=== PATIENT | male | born 1975 | race Caucasian/White ===

== ENCOUNTER → 2017-08-14 | Emergency (ER) | payer SELFPAY ==
[~2017-08-14] VITALS: Ht 180.3 cm; Wt 95.0 kg
[~2017-08-14] MED LIST: ASPIRIN 325 MG TAB PO ONE; HYDR-3012 PO; LORAZEPAM 1 MG TAB PO ONE
[2017-08-14 11:16] VITALS: Ht 180.3 cm; Wt 95.0 kg
--- NOTE | 2017-08-14 12:05 | ERD ---
ER Documentation Chief Complaint Chief Complaint headpain,dizziness and anxiety x this AM HPI 42-year-old male who presents emergency department for dizziness and chest pressure, palpitation since this morning. Stated that he had a lot of alcohol intake in the last 2 days. Also stated that he had this kind of symptoms 2 weeks ago and relieved when she rested. Stated that he has history of anxiety. Denies headache, head trauma, that this is the worst feeling/headache of his life, neck pain, throat pain, difficulty swallowing, shoulder pain, chest pain, difficulty breathing when lying flat, abdominal pain, back pain, nausea, vomiting, constipation, diarrhea, loss of bowel and bladder control, urinary symptoms, trauma, injury, falls, unilateral weakness, recent long travel, recent travel, recent exposure to any illness, recent antibiotic use in the last 3 months, fever, chills, difficulty walking. ROS All systems reviewed and are negative except as per history of present illness. Medications Home Meds No Active Prescriptions or Reported Meds Allergies Allergies: Coded Allergies: No Known Allergy (Unverified , 05/03/14) PMhx/Soc History of Surgery: No Anesthesia Reaction: No Hx Neurological Disorder: No Hx Respiratory Disorders: No Hx Cardiac Disorders: No Hx Psychiatric Problems: No Hx Miscellaneous Medical Probl: No Hx Alcohol Use: No Hx Substance Use: No Hx Tobacco Use: No Physical Exam Vitals Vital Signs Date Time Temp Pulse Resp B/P Pulse Ox O2 Delivery O2 Flow Rate FiO2 08/14/17 11:16 98.8 120 20 132/94 99 Physical Exam Const: In mild distress due to dizziness and palpitation. Head: Atraumatic Eyes: Normal Conjunctiva ENT: Normal External Ears, Nose and Mouth. Neck: Full range of motion..~ No meningismus. Resp: Clear to auscultation bilaterally Cardio: Regular rate and rhythm, no murmurs Abd: Soft, non tender, non distended. Normal bowel sounds Skin: No petechiae or rashes Back: No midline or flank tenderness Ext: No cyanosis, or edema Neur: Awake and alert. No neurological deficits. Romberg test is negative. Psych: Normal Mood and Affect Result Diagram: 08/14/17 1230 08/14/17 1230 Results 24 hrs Laboratory Tests Test 08/14/17 12:30 White Blood Count 10.610^3/ul Red Blood Count 5.5010^6/ul Hemoglobin 17.1g/dl Hematocrit 47.1% Mean Corpuscular Volume 85.6fl Mean Corpuscular Hemoglobin 31.1pg Mean Corpuscular Hemoglobin Concent 36.3g/dl Red Cell Distribution Width 12.2% Platelet Count 63187^3/UL Mean Platelet Volume 10.0fl Neutrophils % 62.7% Lymphocytes % 30.6% Monocytes % 5.2% Eosinophils % 0.8% Basophils % 0.5% Nucleated Red Blood Cells % 0.0/100WBC Neutrophils # 6.710^3/ul Lymphocytes # 3.310^3/ul Monocytes # 0.610^3/ul Eosinophils # 0.110^3/ul Basophils # 0.110^3/ul Nucleated Red Blood Cells # 0.010^3/ul Prothrombin Time 12.8Sec Prothrombin Time Ratio 1.0 INR International Normalized Ratio 0.95 Activated Partial Thromboplast Time 25.8Sec Sodium Level 142mmol/L Potassium Level 3.8mmol/L Chloride Level 104mmol/L Carbon Dioxide Level 19mmol/L Anion Gap 23 Blood Urea Nitrogen 12mg/dl Creatinine 1.10mg/dl Glucose Level 119mg/dl Calcium Level 9.3mg/dl Total Bilirubin 1.8mg/dl Direct Bilirubin 0.00mg/dl Indirect Bilirubin 1.8mg/dl Aspartate Amino Transf (AST/SGOT) 35IU/L Alanine Aminotransferase (ALT/SGPT) 60IU/L Alkaline Phosphatase 89IU/L Troponin I < 0.012ng/ml Total Protein 7.8g/dl Albumin 4.5g/dl Globulin 3.30g/dl Albumin/Globulin Ratio 1.36 Urine Opiates Screen Negative Urine Barbiturates Negative Urine Amphetamines Screen Negative Urine Benzodiazepines Screen Negative Urine Cocaine Screen Negative Urine Cannabinoids Negative Current Medications Medications (Trade) Dose Ordered Sig/Won Route PRN Reason Start Time Stop Time Status Last Admin Dose Admin Aspirin (Aspirin) 325 mg ONCE ONCE PO 08/14/17 12:30 08/14/17 12:31 DC 08/14/17 12:24 Procedures/MDM 42-year-old male presents emergency department for dizziness, palpitation, chest pressure since this morning. EKG: Normal sinus rhythm with a ventricular rate of 99 bpm. No STEMI. Read by supervising physician, Dr. Laith Teehee. Treatment: Aspirin. Antivert. Reevaluation: Denies headache, dizziness, chest pain, back pain, abdominal pain. No neurological deficits. I have low suspicion for stroke, acute myocardial infarction, acute coronary syndrome given that the patient is well-appearing, physical exam was unremarkable, blood works is unremarkable. Final diagnosis: Anxiety. Prescription: Pain. Tylenol. Hydroxyzine. Follow-up with PCP in the next 3-4 days. Come back here in the emergency department for any new symptoms or any worsening of symptoms. All questions and concerns are answered. Patient verbalized understanding and agreed with the plan of care. Hemodynamically stable on discharge. Departure Diagnosis: Primary Impression: Anxiety Condition: Stable Additional Instructions: Follow-up with PCP in the next 3-4 days. Come back here in the emergency department for any new symptoms or any worsening of symptoms. All questions and concerns are answered. Patient verbalized understanding and agreed with the plan of care. LIBORIO SIU Aug 14, 2017 12:05
[2017-08-14 12:52] LABS: BASOPHIL # 0.1 10^3/ul (0.0-0.1); BASOPHILS % 0.5 % (0.0-2.0); EOSINOPHILS # 0.1 10^3/ul (0.0-0.5); EOSINOPHILS % 0.8 % (0.0-7.0); HEMATOCRIT 47.1 % (42.0-52.0); HEMOGLOBIN 17.1 g/dl (14.0-18.0); LYMPHOCYTES # 3.3 10^3/ul (0.8-2.9); LYMPHOCYTES % 30.6 % (15.0-51.0); MEAN CORPUSCULAR HEMOGLOBIN 31.1 pg (29.0-33.0); MEAN CORPUSCULAR HGB CONC 36.3 g/dl (32.0-37.0); MEAN CORPUSCULAR VOLUME 85.6 fl (82.0-101.0); MONOCYTE # 0.6 10^3/ul (0.3-0.9); MONOCYTES % 5.2 % (0.0-11.0); NEUTROPHIL # 6.7 10^3/ul (1.6-7.5); NEUTROPHILS % 62.7 % (39.0-77.0); PLATELET COUNT 343 10^3/UL (140-415); RED CELL DISTRIBUTION WIDTH 12.2 % (11.5-14.5); WHITE BLOOD COUNT 10.6 10^3/ul (4.8-10.8)
--- NOTE | 2017-08-14 13:11 | RADRPT ---
PROCEDURE: XR Chest. CLINICAL INDICATION: Chest pressure TECHNIQUE: PA and lateral views of the chest were obtained. COMPARISON: CR CHEST 04/28/2014; CR CHEST 03/29/2014 FINDINGS: No focal airspace opacification, pleural effusion or pneumothorax is seen. The cardiomediastinal si lhouette is within normal limits for size. The osseous structures are unremarkable. IMPRESSION: Unremarkable chest x-ray series. RPTAT: HH .Ashley Pérez MD, MD Date Time Electronically viewed and signed by .Ashley Pérez MD, on 08/14/2017 13:10 .G/
[2017-08-14 13:13] LABS: INR 0.95; PARTIAL THROMBOPLASTIN TIME 25.8 Sec (25.0-35.0); PROTIME 12.8 Sec (11.9-14.9)
[2017-08-14 13:15] LABS: ALANINE AMINOTRANSFERASE 60 IU/L (13-69); ALBUMIN 4.5 g/dl (3.3-4.9); ALBUMIN/GLOBULIN RATIO 1.36; ALKALINE PHOSPHATASE 89 IU/L (42-121); ANION GAP 23 (8-16); ASPARTATE AMINO TRANSFERASE 35 IU/L (15-46); BILIRUBIN,INDIRECT 1.8 mg/dl (0-1.1); BILIRUBIN,TOTAL 1.8 mg/dl (0.2-1.3); BLOOD UREA NITROGEN 12 mg/dl (7-20); CALCIUM 9.3 mg/dl (8.4-10.2); CARBON DIOXIDE 19 mmol/L (21-31); CHLORIDE 104 mmol/L (97-110); GLUCOSE 119 mg/dl (70-220); POTASSIUM 3.8 mmol/L (3.5-5.1); SODIUM 142 mmol/L (135-144); TOTAL PROTEIN 7.8 g/dl (6.1-8.1)
[2017-08-14 13:26] LABS: BARBITURATES Negative (NEGATIVE); BENZODIAZEPINES Negative (NEGATIVE)
[2017-08-14 13:27] LABS: CANNABINOIDS Negative (NEGATIVE); COCAINE Negative (NEGATIVE); OPIATES Negative (NEGATIVE)
[2017-08-14 13:34] LABS: TROPONIN-I < 0.012 ng/ml (0.00-0.12)
[2017-08-14 14:25] VITALS: BP 134/71; PULSE 74; RESP 19
== END | disposition home or self-care (01) ==
LOC: FTE 11:13
DX: F41.9 Anxiety disorder, unspecified (principal)
CPT/HCPCS: 36415; 71020; 80053; 80307; 84484; 85025; 85610; 85730; 93005